=== PATIENT | female | born 1925 | race American Indian/Alaskan Native ===

== ENCOUNTER 2016-07-18 12:15 | Outpatient (CLI) | payer MEDICARE | END 2016-07-18 12:16 | disposition home or self-care (01) | LOC: LAB 12:15 | PROVIDERS: ATTEND Internal Medicine | DX: Z51.81 Encounter for therapeutic drug level monitoring (principal) | CPT/HCPCS: 36415; 80162 ==

== ENCOUNTER 2016-12-23 12:08 | Outpatient (CLI) | payer MEDICARE ==
--- NOTE | 2016-12-23 13:05 | XRay Report ---
Chest 2 views: Compared to 09/24/16. History: Cough. Findings: Normal cardiomediastinal silhouette. Trachea is midline. Chronic interstitial lung changes bilaterally without significant interval change. Impression: No significant interval change.
== END 2016-12-23 12:09 | disposition home or self-care (01) ==
LOC: XRAY 12:08
PROVIDERS: ATTEND Internal Medicine
DX: R05 Cough (principal); I11.0 Hypertensive heart disease with heart failure; I50.9 Heart failure, unspecified; D64.9 Anemia, unspecified; I48.91 Unspecified atrial fibrillation; J18.9 Pneumonia, unspecified organism
CPT/HCPCS: 71020

== ENCOUNTER 2017-02-07 13:04 | Outpatient (CLI) | payer MEDICARE ==
--- NOTE | 2017-02-07 13:44 | XRay Report ---
ROUTINE CHEST, TWO VIEWS: HISTORY: Cough. The interstitium is very prominent which probably represents pulmonary fibrosis. There is no evidence for consolidation, pleural effusion or pneumothorax. Heart size and pulmonary vascularity are within normal limits. The bony structures are intact. IMPRESSION: Advanced chronic interstitial changes. No acute process noted.
== END 2017-02-07 13:05 | disposition home or self-care (01) ==
LOC: XRAY 13:04
PROVIDERS: ATTEND Internal Medicine
DX: J84.9 Interstitial pulmonary disease, unspecified (principal); I11.0 Hypertensive heart disease with heart failure; I50.9 Heart failure, unspecified; D64.9 Anemia, unspecified; I48.91 Unspecified atrial fibrillation
CPT/HCPCS: 71020